=== PATIENT | female | born 1995 | race African-American/Black ===

== ENCOUNTER 2018-03-21 18:39 | Emergency (ER) | payer OTHER ==
[~2018-03-21] VITALS: Ht 160 cm; Wt 68.0 kg
[2018-03-21 19:18] LABS: URINE BILIRUBIN NEGATIVE (Negative); URINE BLOOD NEGATIVE (Negative); URINE CLARITY CLEAR; URINE COLOR YELLOW; URINE GLUCOSE-RANDOM* NEGATIVE (Negative); URINE KETONES NEGATIVE (Negative); URINE NITRITE-REFLEX NEGATIVE (Negative); URINE PROTEIN (DIPSTICK) NEGATIVE (Negative); URINE UROBILINOGEN 0.2 E.U./dl (0.2-1.0)
[2018-03-21 19:19] LABS: URINE LEUKOCYTES-REFLEX 2+ (Negative)
[2018-03-21 19:26] LABS: SQUAMOUS 4-10 Moderate /LPF (0-3)
[2018-03-21 19:27] LABS: CASTS None Seen /LPF (None Seen); CRYSTALS None Seen /LPF (None Seen); URINE RBC 0-2 Rare /HPF (0-2); URINE WBC-REFLEX 6-15 Few /HPF (0-5); YEAST-REFLEX Present (None Seen)
[2018-03-21] MEDS ORDERED: DIFLUCAN150 M1 PO (20:40)
[2018-03-21] MEDS ORDERED: KEFLEX500 M1 PO (20:40)
[2018-03-21 21:03] VITALS: BP 128/68
== END 2018-03-21 21:05 | disposition home or self-care (01) ==
LOC: ER 18:39
PROVIDERS: Physician Assistant
DX: N39.0 Urinary tract infection, site not specified (principal)